=== PATIENT | female | born 1975 | race Two or more races ===

== ENCOUNTER 2020-01-08 12:04 | Emergency (ER) | payer SELFPAY ==
[~2020-01-08] VITALS: Ht 160 cm; Wt 53.0 kg
[2020-01-08 12:16] VITALS: BP 148/81
[2020-01-08] MEDS ORDERED: KETOROLAC 30MG/ML VIAL IM ONE (15:30)
== END 2020-01-08 16:24 | disposition left against medical advice (07) ==
LOC: ER 13:07
DX: S39.012A Strain of muscle, fascia and tendon of lower back, initial encounter (principal); M62.830 Muscle spasm of back; M79.605 Pain in left leg; M54.40 Lumbago with sciatica, unspecified side; Z88.6 Allergy status to analgesic agent; X58.XXXA Exposure to other specified factors, initial encounter; Y93.89 Activity, other specified; Y92.89 Other specified places as the place of occurrence of the external cause; Y99.8 Other external cause status
CPT/HCPCS: 99281